=== PATIENT | male | born 1990 | race Caucasian/White ===

== ENCOUNTER 2017-03-27 10:09 | Emergency (ER) | payer BC ==
[2017-03-27 10:42] VITALS: BP 144/83
--- NOTE | 2017-03-27 11:39 | UC ---
Respiratory Complaint HPI - HPI Summary HPI Summary: Cough, chills, sneezing upset stomach body aches congestion--called in to work today - History of Current Complaint Chief Complaint: UCRespiratory Stated Complaint: uri Time Seen by Provider: 03/27/17 11:35 Hx Obtained From: Patient Onset/Duration: Sudden Onset, Lasting Days, Still Present Timing: Constant Severity Initially: Moderate Severity Currently: Moderate Character: Cough: Nonproductive Aggravating Factors: Nothing Alleviating Factors: Nothing Associated Signs And Symptoms: Positive: Fever, Chills, Nasal Congestion - Allergies/Home Medications Allergies/Adverse Reactions: Allergies Allergy/AdvReac Type Severity Reaction Status Date / Time Amoxicillin [From Augmentin] Allergy Nausea Verified 11/21/15 14:50 Clavulanic Acid Allergy Nausea Verified 11/21/15 14:50 [From Augmentin] Home Medications: Home Medications NK [No Home Medications Reported] 03/27/17 [History Confirmed 03/27/17] PMH/Surg Hx/FS Hx/Imm Hx Previously Healthy: Yes - Surgical History Surgical History: None - Family History Known Family History: Positive: Hypertension - Social History Occupation: Employed Full-time Lives: With Family Alcohol Use: Weekly Substance Use Type: None Smoking Status (MU): Light Every Day Tobacco Smoker - Immunization History Most Recent Tetanus Shot: less then 10 yrs Review of Systems Constitutional: Chills, Fatigue Skin: Negative Eyes: Negative ENT: Ear Ache, Nasal Discharge Respiratory: Cough Cardiovascular: Negative Gastrointestinal: Vomiting, Nausea Genitourinary: Negative Motor: Negative Neurovascular: Negative Musculoskeletal: Negative Neurological: Negative Psychological: Negative Is Patient Immunocompromised?: No All Other Systems Reviewed And Are Negative: Yes Physical Exam Triage Information Reviewed: Yes Appearance: No Pain Distress, Well-Nourished, Ill-Appearing - mild Vital Signs: Initial Vital Signs Temp 98.7 F 03/27/17 10:38 Pulse 102 03/27/17 10:38 Resp 18 03/27/17 10:38 BP 144/83 03/27/17 10:38 Pulse Ox 97 03/27/17 10:38 Vital Signs Reviewed: Yes Eye Exam: Normal Eyes: Positive: Conjunctiva Clear ENT Exam: Normal ENT: Positive: Normal ENT inspection, Hearing grossly normal, Pharynx normal, TMs normal, Uvula midline. Negative: Nasal congestion, Nasal drainage, Tonsillar swelling, Tonsillar exudate, Trismus, Muffled voice, Hoarse voice, Dental tenderness, Sinus tenderness Dental Exam: Normal Neck exam: Normal Neck: Positive: Supple, Nontender, No Lymphadenopathy Respiratory Exam: Normal Respiratory: Positive: Chest non-tender, Lungs clear, Normal breath sounds, No respiratory distress, No accessory muscle use Cardiovascular Exam: Normal Cardiovascular: Positive: RRR, No Murmur, Pulses Normal, Brisk Capillary Refill Abdominal Exam: Normal Abdomen Description: Positive: Nontender, No Organomegaly, Soft. Negative: CVA Tenderness (R), CVA Tenderness (L) Musculoskeletal Exam: Normal Musculoskeletal: Positive: Strength Intact, ROM Intact, No Edema Neurological Exam: Normal Neurological: Positive: Alert, Muscle Tone Normal Psychological Exam: Normal Skin Exam: Normal UC Diagnostic Evaluation - Laboratory O2 Sat by Pulse Oximetry: 97 Diagnostic Studies Comment: Influenza A/B (-) Respiratory Course/Dx - Course Course Of Treatment: increase fluids, rest otc medications for symptom relief follow blood pressure with pcp - Differential Dx/Diagnosis Provider Diagnoses: URI, Elevated Blood Pressure without dx of Hypertension Discharge - Discharge Plan Condition: Stable Disposition: HOME Patient Education Materials: Upper Respiratory Infection (ED), Hypertension (ED ) Forms: *Gen. Provider Communication, *Work Release Referrals: [facility] [Outside] - 2 Weeks No Primary Care Phys,NOPCP [Primary Care Provider] -
== END 2017-03-27 12:35 | disposition home or self-care (01) ==
LOC: UCEAST 10:09
DX: J06.9 Acute upper respiratory infection, unspecified (principal); R03.0 Elevated blood-pressure reading, without diagnosis of hypertension; Z88.1 Allergy status to other antibiotic agents; F17.210 Nicotine dependence, cigarettes, uncomplicated
CPT/HCPCS: 87502; 99211; G0463

== ENCOUNTER 2017-05-10 13:22 | Emergency (ER) | payer BC ==
[2017-05-10 13:36] VITALS: BP 131/85
--- NOTE | 2017-05-28 13:22 | UC ---
Respiratory Complaint HPI - HPI Summary HPI Summary: Patient urgent care today complaining of cough cold fevers and chills has been lasting for 2 days will be going out of town shortly and is concerned that he gets sicker - History of Current Complaint Hx Obtained From: Patient Onset/Duration: Sudden Onset, Lasting Days Timing: Constant Severity Initially: Mild Severity Currently: Mild Pain Intensity: 0 Pain Scale Used: 0-10 Numeric Character: Cough: Productive Alleviating Factors: Nothing Associated Signs And Symptoms: Positive: Fever, Chills, URI, Nasal Congestion <Kristy Morales - Last Filed: 05/28/17 15:02> <Denise Gilmore - Last Filed: 05/29/17 09:24> - History of Current Complaint Chief Complaint: UCRespiratory Stated Complaint: RESP ISSUE Time Seen by Provider: 05/10/17 13:36 - Allergies/Home Medications Allergies/Adverse Reactions: Allergies Allergy/AdvReac Type Severity Reaction Status Date / Time amoxicillin [From Augmentin] Allergy Nausea Verified 05/10/17 13:41 clavulanic acid Allergy Nausea Verified 05/10/17 13:41 [From Augmentin] PMH/Surg Hx/FS Hx/Imm Hx Previously Healthy: Yes - Surgical History Surgical History: None - Family History Known Family History: Positive: Hypertension - Social History Occupation: Employed Full-time Lives: With Family Alcohol Use: Weekly Substance Use Type: None Smoking Status (MU): Light Every Day Tobacco Smoker - Immunization History Most Recent Tetanus Shot: less then 10 yrs <Kristy Morales - Last Filed: 05/28/17 15:02> Review of Systems Constitutional: Fever, Chills, Fatigue Skin: Negative Eyes: Negative ENT: Negative Respiratory: Cough Cardiovascular: Negative Gastrointestinal: Negative Genitourinary: Negative Motor: Negative Neurovascular: Negative Musculoskeletal: Negative Neurological: Negative Psychological: Negative Is Patient Immunocompromised?: No All Other Systems Reviewed And Are Negative: Yes <Kristy Morales - Last Filed: 05/28/17 15:02> Physical Exam Triage Information Reviewed: Yes Appearance: Well-Nourished, Ill-Appearing - mild, Pain Distress - mild Vital Signs: Initial Vital Signs Temp 99.0 F 05/10/17 13:32 Pulse 100 05/10/17 13:32 Resp 16 05/10/17 13:32 BP 131/85 05/10/17 13:32 Pulse Ox 97 05/10/17 13:32 Vital Signs Reviewed: Yes Eye Exam: Normal Eyes: Positive: Conjunctiva Clear ENT Exam: Normal ENT: Positive: Normal ENT inspection, Hearing grossly normal, Pharynx normal, Nasal congestion, TMs normal, Uvula midline. Negative: Nasal drainage, Trismus , Muffled voice, Hoarse voice, Dental tenderness, Sinus tenderness Dental Exam: Normal Neck exam: Normal Neck: Positive: Supple, Nontender, No Lymphadenopathy Respiratory Exam: Normal Respiratory: Positive: Chest non-tender, Lungs clear, Normal breath sounds, No respiratory distress, No accessory muscle use Cardiovascular Exam: Normal Cardiovascular: Positive: RRR, No Murmur, Pulses Normal, Brisk Capillary Refill Musculoskeletal Exam: Normal Musculoskeletal: Positive: Strength Intact, ROM Intact, No Edema Neurological Exam: Normal Neurological: Positive: Alert, Muscle Tone Normal Psychological Exam: Normal Skin Exam: Normal <Kristy Morales - Last Filed: 05/28/17 15:02> Vital Signs: Initial Vital Signs Temp 99.0 F 05/10/17 13:32 Pulse 100 05/10/17 13:32 Resp 16 05/10/17 13:32 BP 131/85 05/10/17 13:32 Pulse Ox 97 05/10/17 13:32 <Denise Gilmore - Last Filed: 05/29/17 09:24> UC Diagnostic Evaluation - Laboratory O2 Sat by Pulse Oximetry: 97 <Kristy Morales - Last Filed: 05/28/17 15:02> Respiratory Course/Dx - Course Course Of Treatment: Patient discharged to home patient verbalized understanding that this illness is most likely viral that supportive care Tylenol ibuprofen extra fluids [id number] pain medicines to relieve symptoms is the best treatment patient was given a prescription for Zithromax to hold onto should symptoms worsen or fail to improve. Patient advised to follow with primary care doctor when necessary - Differential Dx/Diagnosis Provider Diagnoses: URI <Kristy Morales - Last Filed: 05/28/17 15:02> Discharge <Kristy Morales - Last Filed: 05/28/17 15:02> <Denise Gilmore - Last Filed: 05/29/17 09:24> - Discharge Plan Condition: Stable Disposition: HOME Prescriptions: Azithromycin TAB* [Zithromax TAB (Z-PAUL) 250 mg #6 tabs] 2 tab PO .TODAY, THEN 1 DAILY #1 paul Patient Education Materials: Upper Respiratory Infection (ED) Forms: *Work Release Referrals: [facility] [Outside] Attestation Statement User Type: Provider - I was available for consult. This patient was seen by the SHANNEN. The patient was not presented to, seen by, or examined by me. Shabana <Denise Gilmore - Last Filed: 05/29/17 09:24>
== END 2017-05-10 14:44 | disposition home or self-care (01) ==
LOC: UCEAST 13:22
DX: J06.9 Acute upper respiratory infection, unspecified (principal); Z88.1 Allergy status to other antibiotic agents; F17.200 Nicotine dependence, unspecified, uncomplicated
CPT/HCPCS: 87502; 99212; G0463

== ENCOUNTER 2018-06-03 22:39 | Emergency (ER) | payer BC ==
[2018-06-04 00:55] VITALS: BP 144/78
== END 2018-06-04 02:26 | disposition left against medical advice (07) ==
LOC: ED 22:39
DX: K92.0 Hematemesis (principal); Z53.21 Procedure and treatment not carried out due to patient leaving prior to being seen by health care provider

== ENCOUNTER 2019-01-05 18:14 | Emergency (ER) | payer BC ==
[2019-01-05 18:27] VITALS: BP 120/79
--- NOTE | 2019-01-05 18:55 | UC ---
Nausea/Vomiting/Diarrhea HPI - HPI Summary HPI Summary: ABOUT 1 HOUR PRIOR TO ARRIVAL PATIENT REPORTS HE SUDDENLY FELT ILL AND THEN HAD ONE EPISODE OF VOMITING "SOMETHING DARK AND THEN BRIGHT RED BLOOD". LAST NIGHT PATIENT REPORTS HE WAS DRINKING HEAVILY WITH A FRIEND. WAS FEELING FINE TODAY UNTIL THE EPISODE OF VOMITING. STATES FOR THE PAST COUPLE OF MONTHS HE HAS BEEN DRINKING HEAVILY ABOUT ONCE PER WEEK. PRIOR TO THAT HE DRANK VERY HEAVILY AT LEAST 3 TIMES PER WEEK FOR YEARS. STATES HE HAD A COLONOSCOPY/EGD IN 2012 FOR VOMITING BLOOD. DOES NOT RECALL THE EXACT RESULTS BUT STATES HE THINKS IT WAS OKAY. CURRENTLY HE IS DENYING ANY NAUSEA, ABDOMINAL PAIN, SHORTNESS OF BREATH, CHEST PAIN. NO FEVER. STATES HE DOES FEEL HIS HEART BEATING QUICKLY. - History of Current Complaint Chief Complaint: UCGI Stated Complaint: VOMITING BLOOD POSSIBLE Time Seen by Provider: 01/05/19 18:36 Hx Obtained From: Patient Onset/Duration: Sudden Onset Severity Currently: None Pain Intensity: 0 Pain Scale Used: 0-10 Numeric Character: Not Applicable Aggravating Factor(s): Nothing Alleviating Factor(s): Nothing Nausea/Vomiting Presence: Vomiting Vomiting Characteristics: Bloody Diarrhea Presence: No - Allergies/Home Medications Allergies/Adverse Reactions: Allergies Allergy/AdvReac Type Severity Reaction Status Date / Time amoxicillin [From Augmentin] Allergy Nausea Verified 01/05/19 18:27 clavulanic acid Allergy Nausea Verified 01/05/19 18:27 [From Augmentin] PMH/Surg Hx/FS Hx/Imm Hx Cardiovascular History: Hypertension - Surgical History Surgical History: None Surgery Procedure, Year, and Place: colonoscopy/endoscopy 2012, wisdom teeth - Family History Known Family History: Positive: Hypertension - Social History Alcohol Use: Weekly Alcohol Amount: once a week on Fridays Substance Use Type: None Smoking Status (MU): Current Some Day Smoker - Immunization History Most Recent Tetanus Shot: less then 10 yrs Review of Systems All Other Systems Reviewed And Are Negative: Yes Constitutional: Positive: Negative Skin: Positive: Negative Respiratory: Positive: Negative Cardiovascular: Positive: Negative Gastrointestinal: Positive: Vomiting, Other - HEMATEMESIS Genitourinary: Positive: Negative Physical Exam Triage Information Reviewed: Yes Appearance: Well-Appearing, No Pain Distress, Well-Nourished Vital Signs: Initial Vital Signs Temp 98.1 F 01/05/19 18:22 Pulse 111 01/05/19 18:22 Resp 20 01/05/19 18:22 BP 120/79 01/05/19 18:22 Pulse Ox 97 01/05/19 18:22 Vital Signs Reviewed: Yes Eyes: Positive: Conjunctiva Clear ENT: Positive: Hearing grossly normal, Pharynx normal, TMs normal Neck: Positive: Supple, Nontender, No Lymphadenopathy Respiratory Exam: Normal Cardiovascular: Positive: Tachycardia Abdomen Description: Positive: Nontender, Soft. Negative: Distended, Guarding Musculoskeletal: Positive: No Edema Neurological: Positive: Alert Psychological: Positive: Age Appropriate Behavior Skin: Negative: Rashes Naus/Vom/Diarrhea Course/Dx - Course Course Of Treatment: PATIENT ARRIVES COMPLAINING OF VOMITING BLOOD AFTER A NIGHT OF HEAVY DRINKING. HAS A HISTORY OF REGULAR HEAVY DRINKING. REQUIRES HIGHER LEVEL OF CARE THAN WHAT IS AVAILABLE IN THE URGENT CARE. TO THE [facility] [place] PRIVATE CAR. PT OFFERED TRANSPORT TO THE ER BY AMBULANCE BUT DECLINES. ADVISED THAT BY NOT TRAVELING IN A MONITORED SETTING HE COULD BE RISKING WORSENING OF HIS CONDITION THAT COULD POSE A THREAT TO HIS LIFE, HEALTH AND MEDICAL SAFETY. HE VERBALIZES UNDERSTANDING AND CONTINUES TO DECLINE AMBULANCE TRANSFER. - Differential Dx/Diagnosis Provider Diagnosis: Hematemesis Condition At Discharge: Stable - Physician Notification/Consults Discussed Case/Management/Disposition Of Patient With: Abiel Zhao - [place] [facility] [place]BULANCE Time Discussed With Above Provider: 19:00 Discharge ED - Sign-Out/Discharge Documenting (check all that apply): Patient Departure All imaging exams completed and their final reports reviewed: No Studies - Discharge Plan Condition: Stable Disposition: TRANS HIGHER LVL OF CARE FAC Patient Education Materials: Hematemesis (ED) Referrals: Robi Blood DO [Primary Care Provider] - If Needed Additional Instructions: GO DIRECTLY TO THE [facility] FROM HERE FOR FURTHER EVALUATION. YOU HAVE DECLINED TRANSFER TO THE ER BY AMBULANCE. BE ADVISED THAT BY NOT TRAVELING IN A MONITORED SETTING YOU COULD BE RISKING WORSENING OF YOUR CONDITION THAT COULD POSE A THREAT TO YOUR LIFE, HEALTH AND MEDICAL SAFETY. NOTHING BY MOUTH UNTIL SEEN IN ER. - Billing Disposition and Condition Condition: STABLE Disposition: Trans Higher Lvl of Care Fac
== END 2019-01-05 18:49 | disposition short-term general hospital (02) ==
LOC: UCEAST 18:14
DX: K92.0 Hematemesis (principal); I10 Essential (primary) hypertension; F17.200 Nicotine dependence, unspecified, uncomplicated; Z88.0 Allergy status to penicillin
CPT/HCPCS: 99212; G0463

== ENCOUNTER 2019-01-05 19:12 | Emergency (ER) | payer BC ==
[2019-01-05] MEDS ORDERED: NS 0.9% 1000 ML** 1,000 ML IV ONE (19:27)
--- NOTE | 2019-01-05 19:39 | ED ---
GI/ HPI - HPI Summary HPI Summary: This patient is a 28 year old M presenting to [facility] accompanied by girlfriend with a chief complaint of black and red emesis occurring at 1700 today. Pt reports he drank and smoke last night; however leading up to the incident he felt hungover but okay throughout the day. At 1700 suddenly felt very sick. He went to the bathroom and threw up. He reports the emesis was mostly black with a spot of red. Afterword he felt sick, woozy, and panicked. He went to Urgent Care and they sent him here. Patient reports diarrhea (not bloody) earlier in the day. Patient denies abdominal pain Pt has a colonoscopy and endoscopy due to defecating blood in 2012. Pt has a PMHx of HTN. - History of Current Complaint Chief Complaint: EDGIBleed Time Seen by Provider: 01/05/19 19:27 Stated Complaint: VOMITING BLOOD PER PT Hx Obtained From: Patient Onset/Duration: Started Hours Ago Timing: Lasting Minutes Current Severity: None Pain Intensity: 0 Location of Pain: None Associated Signs and Symptoms: Positive: Vomiting, Diarrhea. Negative: Abdominal Pain Aggravating Factor(s): Nothing Alleviating Factor(s): Nothing - Allergy/Home Medications Allergies/Adverse Reactions: Allergies Allergy/AdvReac Type Severity Reaction Status Date / Time amoxicillin [From Augmentin] Allergy Nausea Verified 01/05/19 19:27 clavulanic acid Allergy Nausea Verified 01/05/19 19:27 [From Augmentin] PMH/Surg Hx/FS Hx/Imm Hx Endocrine/Hematology History: Denies: Hx Diabetes, Hx Thyroid Disease Cardiovascular History: Reports: Hx Hypertension Respiratory History: Denies: Hx Asthma - Surgical History Surgery Procedure, Year, and Place: colonoscopy/endoscopy 2012, wisdom teeth Infectious Disease History: No Infectious Disease History: Denies: Hx Hepatitis, Traveled Outside the [place] in Last 30 Days - Family History Known Family History: Positive: Hypertension - Social History Occupation: Employed Full-time Alcohol Use: Weekly Alcohol Amount: once a week on Fridays Substance Use Type: Reports: Cocaine Substance Use Comment - Amount & Last Used: twice a year Smoking Status (MU): Current Some Day Smoker Review of Systems Negative: Fever Positive: Vomiting, Diarrhea. Negative: Abdominal Pain All Other Systems Reviewed And Are Negative: Yes Physical Exam - Summary Physical Exam Summary: Appearance: Well-appearing, Well-nourished, lying in bed comfortably Skin: Warm, dry, no obvious rash Eyes: sclera anicteric, no conjunctival pallor ENT: mucous membranes moist, pharynx appears normal Neck: Supple, nontender Respiratory: Clear to auscultation, no signs of respiratory distress Cardiovascular: Normal S1, S2. No murmurs. Normal distal pulses in tibial and radial bilaterally. Abdomen: Soft, nontender, normal active bowel sounds present Musculoskeletal: Normal, Strength/ROM Intact Neurological: A&Ox3, awake and alert, mentation is normal, speech is fluent and appropriate Psychiatric: affect is normal, does not appear anxious or depressed Triage Information Reviewed: Yes Vital Signs On Initial Exam: Initial Vitals Temp Pulse Resp BP Pulse Ox 97.9 F 109 18 128/89 95 01/05/19 19:14 01/05/19 19:14 01/05/19 19:14 01/05/19 19:14 01/05/19 19:14 Vital Signs Reviewed: Yes Procedures - Sedation Patient Received Moderate/Deep Sedation with Procedure: No Diagnostics - Vital Signs Vital Signs Temp Pulse Resp BP Pulse Ox 01/05/19 19:14 97.9 F 109 18 128/89 95 - Laboratory Result Diagrams: 01/05/19 19:41 01/05/19 19:41 Lab Statement: Any lab studies that have been ordered have been reviewed, and results considered in the medical decision making process. Re-Evaluation - Re-Evaluation First Eval Re-Evaluation Time: 20:50 Comment: Discussed results and plan of care with pt. Upon re-eval pt is feeling okay and has had no further vomiting. GIGU Course/Dx - Course Course Of Treatment: This patient is a 28 year old M presenting to [facility] accompanied by girlfriend with a chief complaint of black and red emesis occurring at 1700 today. Pt reports he drank and smoke last night; however leading up to the incident he felt hungover but okay throughout the day. At 1700 suddenly felt very sick. He went to the bathroom and threw up. He reports the emesis was mostly black with a spot of red. Afterword he felt sick, woozy, and panicked. He went to Urgent Care and they sent him here. Patient reports diarrhea (not bloody) earlier in the day. Patient denies abdominal pain Pt has a colonoscopy and endoscopy due to defecating blood in 2012. Pt has a PMHx of HTN. Physical exam findings are nml. Blood work obtained. WBS is 17.9, RBC is 5.95, Hct is 53, INR is 1.15. Patient will be discharged. The patient is agreeable with this plan. - Diagnoses Provider Diagnoses: Gastritis Discharge ED - Sign-Out/Discharge Documenting (check all that apply): Patient Departure - Discharge - Discharge Plan Condition: Good Disposition: HOME Patient Education Materials: Gastritis (ED) Referrals: Robi Blood DO [Primary Care Provider] - 3 Days - Billing Disposition and Condition Condition: GOOD Disposition: Home - Attestation Statements Document Initiated by Daniel: Yes Documenting Scribe: Vianey Reed Provider For Whom Daniel is Documenting (Include Credential): Rafiq Duran MD Scribe Attestation: Vianey Moreno scribed for Rafiq Duran MD on 01/06/19 at 1958. Scribe Documentation Reviewed: Yes Provider Attestation: The documentation as recorded by the Vianey dodge accurately reflects the service I personally performed and the decisions made by , Rafiq Duran MD Status of Scribe Document: Viewed
[2019-01-05 19:48] LABS: ABS Eosinophils 0.1 10^3/ul (0-0.6); ABS Lymphocytes 1.7 10^3/ul (1.0-4.8); ABS Nucleated RBC 0.1 10^3/ul; Eosinophil % 0.5 %; Hematocrit 53 % (42-52); Hemoglobin 17.8 g/dL (14.0-18.0); Lymphocyte % 9.7 %; Mean Corpuscular HGB Conc 34 g/dL (31-36); Mean Corpuscular Hemoglobin 30 pg (27-31); Mean Corpuscular Volume 88 fL (80-94); Nucleated Red Blood Cells % 0.3; Platelet Count 407 10^3/uL (150-450); Red Blood Count 5.95 10^6 /uL (4.18-5.48); Red Cell Distribution Width 13 % (10-15); White Blood Count 17.9 10^3/uL (3.5-10.8)
[2019-01-05 19:56] LABS: Activated Partial Thrombo Time 36.2 seconds (26.0-38.0); INR 1.15 (0.82-1.09)
[2019-01-05 20:04] LABS: Albumin 4.9 g/dL (3.2-5.2); Albumin/Globulin Ratio 1.6 (1-3); BUN/Creatinine Ratio 12.5 (8-20); Calcium 9.8 mg/dL (8.6-10.3); EGFR African American 124.8 (>60); EGFR Non-African American 103.1 (>60); Globulin 3.1 g/dL (2-4); Potassium 4.1 mmol/L (3.5-5.0); Total Bilirubin 0.7 mg/dL (0.2-1.0)
[2019-01-05 21:04] VITALS: BP 117/84
== END 2019-01-05 21:03 | disposition home or self-care (01) ==
LOC: ED 19:12
DX: K29.70 Gastritis, unspecified, without bleeding (principal); I10 Essential (primary) hypertension; F17.210 Nicotine dependence, cigarettes, uncomplicated; Z88.1 Allergy status to other antibiotic agents; Z88.0 Allergy status to penicillin
CPT/HCPCS: 36415; 80053; 85025; 85610; 85730; 86850; 86900; 86901; 96360; 99282